=== PATIENT | male | born 1965 | race Caucasian/White ===

== ENCOUNTER 2019-01-05 18:44 | Emergency (ER) | payer BC ==
[2019-01-05 19:39] LABS: Urine Blood 2+ (NEG); Urine Glucose TRACE (NEG); Urine Protein 3+ (NEG); Urine Specific Gravity 1.025 (1.005-1.030); Urine pH 5.5 (5.0-7.0)
[2019-01-05] MEDS ORDERED: NA CHLORIDE 0.9% 1,000 ML ONE (20:04)
[2019-01-05] MEDS ORDERED: NA CHLORIDE 0.9% 500 ML ONE (20:04)
[2019-01-05 20:21] LABS: Absolute Lymphocytes (CBC) 1.5 K/uL (0.7-4.9); Basophils % 0.5 % (0-1.3); Hematocrit 29.3 % (39.6-49.0); Lymphocytes % 13.9 % (15.3-44.8); MPV 8.3 fL (7.6-11.3); RBC Red Blood Cell Count 3.23 M/uL (4.33-5.43)
[2019-01-05 20:22] LABS: Protime INR 1.08
--- NOTE | 2019-01-05 20:27 | RAD REPORT ---
EXAM DESCRIPTION: Anusha Single View01/05/2019 7:59 pm CLINICAL HISTORY: Abdominal pain COMPARISON: none FINDINGS: The lungs appear clear of acute infiltrate. The heart is normal size IMPRESSION: No acute abnormalities displayed
[2019-01-05 20:40] LABS: ALT/SGPT 17 U/L (12-78); AST/SGOT 12 U/L (15-37); Alkaline Phosphatase 114 U/L (45-117); BUN Blood Urea Nitrogen 56 mg/dL (7-18); Bicarbonate 23 mmol/L (21-32); Bilirubin Direct < 0.1 mg/dL (0-0.2); Bilirubin Total 0.3 mg/dL (0.2-1.0); Glucose Level 85 mg/dL (74-106); Lipase 46 U/L (73-393); Magnesium 2.1 mg/dL (1.8-2.4); NT PRO-BNP 5012 pg/mL (<125); Potassium 4.8 mmol/L (3.5-5.1); Protein, Total 7.5 g/dL (6.4-8.2); Sodium Level 141 mmol/L (136-145); Troponin (Emerg Dept Use Only) < 0.02 ng/mL (0.0-0.045)
[2019-01-05] MEDS ORDERED: ONDANSETRON 4 MG/2 ML VIAL ONE (20:43)
[2019-01-05] MEDS ORDERED: HYDROMORPHONE HCL 1 MG/ML INJ ONE (20:43)
--- NOTE | 2019-01-05 23:36 | ER ---
Nurse's Notes [facility] Name: Fred Hampton Age: 53 yrs Sex: Male : 1965 Arrival Date: 01/05/2019 Time: 18:45 Bed 13 Private MD: Diagnosis: Abdominal tenderness-6.5 lobulated mass, intramural, ileocolic bowel, cecum;Retention of urine;Crohn's disease of large intestine;Type 1 diabetes mellitus Presentation: 01/05 18:48 Presenting complaint: Pain with urination, rectal pain and mucous discharge from rectum hb x 2 weeks. Pt has had a colostomy for 5 years, does not usually have any rectal discharge or pain. Transition of care: patient was not received from another setting of care. Onset of symptoms was January 05, 2019. Risk Assessment: Do you want to hurt yourself or someone else? Patient reports no desire to harm self or others. Care prior to arrival: None. 18:48 Method Of Arrival: Ambulatory hb 18:48 Acuity: ART 3 hb 19:30 Initial Sepsis Screen: Does the patient meet any 2 criteria? No. Patient's initial sepsis screen is negative. Does the patient have a suspected source of infection? Yes: Acute abdominal pain. Historical: - Allergies: 18:51 Remicade; hb 18:51 Morphine; hb - PMHx: 18:51 Hypertension; Diabetes - IDDM; Crohn's; Myocardial infarction; Renal Disease; hb - PSHx: 18:51 Heart stents; Ankle - Right; Colostomy; hb - Immunization history:: Adult Immunizations up to date. - Social history:: Smoking status: Patient/guardian denies using tobacco. - Ebola Screening: : No symptoms or risks identified at this time. - Family history:: not pertinent. Screenin:30 Abuse screen: Denies threats or abuse. Denies injuries from another. Nutritional screening: No deficits noted. Tuberculosis screening: No symptoms or risk factors identified. Fall Risk None identified. Assessment: 19:30 General: Appears in no apparent distress. uncomfortable, Behavior is calm, cooperative, wh appropriate for age. Pain: Complains of pain in suprapubic area Pain does not radiate. Pain currently is 6 out of 10 on a pain scale. Neuro: Level of Consciousness is awake, alert, obeys commands, Oriented to person, place, time, situation, Appropriate for age. Cardiovascular: Heart tones S1 S2. Respiratory: Airway is patent Respiratory effort is even, unlabored, Respiratory pattern is regular, symmetrical. GI: Abdomen is flat, non-distended, Colostomy site is clean and dry. Ostomy appliance is intact. Bowel sounds present X 4 quads. Abd is soft and non tender X 4 quads. : Reports urinary frequency. EENT: No signs and/or symptoms were reported regarding the EENT system. Derm: Skin is intact, is healthy with good turgor, Skin is pink, warm \T\ dry. normal. Musculoskeletal: Circulation, motion, and sensation intact. 20:30 Reassessment: Patient appears in no apparent distress at this time. No changes from previously documented assessment. Patient and/or family updated on plan of care and expected duration. Pain level reassessed. Patient is alert, oriented x 3, equal unlabored respirations, skin warm/dry/pink. Pt in pain notified Provider. 21:30 Reassessment: Patient appears in no apparent distress at this time. Patient and/or tr5 family updated on plan of care and expected duration. Pain level reassessed. Patient is alert, oriented x 3, equal unlabored respirations, skin warm/dry/pink. 22:30 Reassessment: Patient appears in no apparent distress at this time. Patient and/or tr5 family updated on plan of care and expected duration. Pain level reassessed. Patient is alert, oriented x 3, equal unlabored respirations, skin warm/dry/pink. 01/06 00:32 Reassessment: Patient appears in no apparent distress at this time. Patient and/or tr5 family updated on plan of care and expected duration. Pain level reassessed. Patient is alert, oriented x 3, equal unlabored respirations, skin warm/dry/pink. Vital Signs: 01/05 18:51 BP 210 / 102; Pulse 89; Resp 16; Temp 97.1; Pulse Ox 100% on R/A; Weight 81.65 kg; hb Height 5 ft. 9 in. (175.26 cm); Pain 7/10; 20:30 BP 190 / 96; Pulse 95; Resp 18; Pulse Ox 98% on R/A; wh 18:51 Body Mass Index 26.58 (81.65 kg, 175.26 cm) hb ED Course: 18:45 Patient arrived in ED. as 18:49 Triage completed. hb 18:51 Arm band placed on. hb 18:55 Greg Hart is Primary Nurse. wh 19:23 Vikash Escobar MD is Attending Physician. carlos enrique 19:30 Patient has correct armband on for positive identification. Placed in gown. Bed in low wh position. Call light in reach. Side rails up X 1. shelter monitor on. Pulse ox on. NIBP on. 19:43 Bladder scan completed. 199. cm6 19:59 XRAY Chest (1 view) In Process Unspecified. EDMS 21:45 Abdomen In Process Unspecified. EDMS 21:46 CT completed. Patient tolerated procedure well. Patient moved back from CT. mw3 21:58 Bladder scan completed. 279. mt 23:33 Jailene Sutherland MD is Referral Physician. carlos enrique 23:33 Goran Sanz MD is Referral Physician. carlos enrique 23:36 Mario Aguila MD is Referral Physician. [facility] 01/06 00:12 Hester cath inserted, using sterile technique, 16 Fr., by nd, balloon inflated, to jd3 gravity drainage. 00:59 No provider procedures requiring assistance completed. IV discontinued. tr5 Administered Medications: 01/05 20:17 Drug: NS 0.9% 500 ml Route: IV; Rate: bolus; Site: right antecubital; 20:17 Drug: NS 0.9% 1000 ml Route: IV; Rate: 125 ml/hr; Site: right antecubital; 20:50 Drug: Dilaudid 1 mg {Note: RASS:0.} Route: IVP; Site: right antecubital; tr5 20:50 Drug: Zofran 4 mg Route: IVP; Site: right antecubital; tr5 20:50 Drug: NS 0.9% 500 ml Route: IV; Rate: bolus; Site: right antecubital; tr5 23:57 Drug: Flomax 0.4 mg Route: PO; tr5 23:58 Drug: Flagyl 500 mg Route: PO; tr5 23:59 Drug: Cipro 500 mg Route: PO; tr5 01/06 01:20 Drug: Zofran 4 mg Route: IVP; Site: right antecubital; tr5 01:26 Drug: Dilaudid 1 mg {Note: RASS:0.} Route: IVP; Site: right antecubital; tr5 Outcome: 01/05 23:36 Discharge ordered by MD. monaco 01/06 00:59 Discharged to home ambulatory. tr5 Condition: stable Discharge instructions given to patient, Instructed on discharge instructions, follow up and referral plans. medication usage, Demonstrated understanding of instructions, follow-up care, medications, Prescriptions given X 4. 01:26 Patient left the ED. tr5 Signatures: Dispatcher [employer] EDNE Vikash Escobar MD MD cha Martinez, Amelia as Baxter, Heather, RN RN blane Jalloh, Greg Cam mt, Jonathon, RN RN jd3 Kayla Richardson3 Mary Enrique cm6 Jens García, DEANA RN tr5
--- NOTE | 2019-01-05 23:37 | EDPHYS ---
Physician Documentation [facility] Name: Fred Hampton Age: 53 yrs Sex: Male : 1965 Arrival Date: 01/05/2019 Time: 18:45 Bed 13 Private MD: ED Physician Vikash Escobar HPI: 01/05 19:34 This 53 yrs old Male presents to ER via Ambulatory with complaints of carlos enrique Abdominal Pain, Rectal Pain, Urinary Problem. 19:34 The patient presents to the emergency department with pain in the rectal area. Onset: carlos enrique The symptoms/episode began/occurred 3 day(s) ago. Context: the patient has no known special context relating to the rectal area complaint(s). Modifying factors: The symptoms are alleviated by nothing, The symptoms are aggravated by nothing. Associate signs and symptoms: Pertinent positives: abdominal pain in the right lower quadrant and left lower quadrant, dysuria. The patient has not experienced similar symptoms in the past. Historical: - Allergies: 18:51 Remicade; hb 18:51 Morphine; hb - PMHx: 18:51 Hypertension; Diabetes - IDDM; Crohn's; Myocardial infarction; Renal Disease; hb - PSHx: 18:51 Heart stents; Ankle - Right; Colostomy; hb - Immunization history:: Adult Immunizations up to date. - Social history:: Smoking status: Patient/guardian denies using tobacco. - Ebola Screening: : No symptoms or risks identified at this time. - Family history:: not pertinent. ROS: 19:34 Constitutional: Negative for fever, chills, and weight loss, Eyes: Negative for injury, carlos enrique pain, redness, and discharge, ENT: Negative for injury, pain, and discharge, Neck: Negative for injury, pain, and swelling, Cardiovascular: Negative for chest pain, palpitations, and edema, Respiratory: Negative for shortness of breath, cough, wheezing, and pleuritic chest pain, Back: Negative for injury and pain, : Negative for injury, bleeding, discharge, and swelling, MS/Extremity: Negative for injury and deformity, Skin: Negative for injury, rash, and discoloration, Neuro: Negative for headache, weakness, numbness, tingling, and seizure, Psych: Negative for depression, anxiety, suicide ideation, homicidal ideation, and hallucinations, Allergy/Immunology: Negative for hives, rash, and allergies, Endocrine: Negative for neck swelling, polydipsia, polyuria, polyphagia, and marked weight changes. 19:34 Abdomen/GI: Positive for abdominal pain, abdominal cramps, of the right lower quadrant and left lower quadrant. Exam: 19:34 Constitutional: This is a well developed, well nourished patient who is awake, alert, carlos enrique and in no acute distress. Head/Face: Normocephalic, atraumatic. Eyes: Pupils equal round and reactive to light, extra-ocular motions intact. Lids and lashes normal. Conjunctiva and sclera are non-icteric and not injected. Cornea within normal limits. Periorbital areas with no swelling, redness, or edema. ENT: Nares patent. No nasal discharge, no septal abnormalities noted. Tympanic membranes are normal and external auditory canals are clear. Oropharynx with no redness, swelling, or masses, exudates, or evidence of obstruction, uvula midline. Mucous membranes moist. Neck: Trachea midline, no thyromegaly or masses palpated, and no cervical lymphadenopathy. Supple, full range of motion without nuchal rigidity, or vertebral point tenderness. No Meningismus. Chest/axilla: Normal chest wall appearance and motion. Nontender with no deformity. No lesions are appreciated. Cardiovascular: Regular rate and rhythm with a normal S1 and S2. No gallops, murmurs, or rubs. Normal PMI, no JVD. No pulse deficits. Respiratory: Lungs have equal breath sounds bilaterally, clear to auscultation and percussion. No rales, rhonchi or wheezes noted. No increased work of breathing, no retractions or nasal flaring. Back: No spinal tenderness. No costovertebral tenderness. Full range of motion. Male : Normal genitalia with no discharge or lesions. Skin: Warm, dry with normal turgor. Normal color with no rashes, no lesions, and no evidence of cellulitis. MS/ Extremity: Pulses equal, no cyanosis. Neurovascular intact. Full, normal range of motion. Neuro: Awake and alert, GCS 15, oriented to person, place, time, and situation. Cranial nerves II-XII grossly intact. Motor strength 5/5 in all extremities. Sensory grossly intact. Cerebellar exam normal. Normal gait. Psych: Awake, alert, with orientation to person, place and time. Behavior, mood, and affect are within normal limits. 19:34 Abdomen/GI: Inspection: abdomen appears normal, Bowel sounds: normal, Palpation: mild abdominal tenderness, in the right lower quadrant and left lower quadrant, Liver: no appreciated palpable abnormalities, Hernia: not appreciated, llq colostomy. 22:10 Abdomen/GI: Rectal exam: Prostate: enlarged. carlos enrique 22:10 Abdomen/GI: Rectal exam: is unremarkable, rectal tone normal, Stool: normal, guaiac negative, hemorrhoid(s), are not appreciated, mass, is not appreciated, swelling, is not appreciated, tenderness, is not appreciated. Vital Signs: 18:51 BP 210 / 102; Pulse 89; Resp 16; Temp 97.1; Pulse Ox 100% on R/A; Weight 81.65 kg; hb Height 5 ft. 9 in. (175.26 cm); Pain 7/10; 20:30 BP 190 / 96; Pulse 95; Resp 18; Pulse Ox 98% on R/A; wh 18:51 Body Mass Index 26.58 (81.65 kg, 175.26 cm) hb MDM: 19:23 Patient medically screened. [facility] 19:36 Data reviewed: vital signs, nurses notes, lab test result(s), EKG, radiologic studies, [facility] CT scan, plain films. 01/05 19:13 Order name: Urine Dipstick--Ancillary (enter results); Complete Time: 20:35 cm6 01/05 19:25 Order name: Basic Metabolic Panel; Complete Time: 20:43 [facility] 01/05 19:25 Order name: CBC with Diff; Complete Time: 20:35 [facility] 01/05 19:25 Order name: LFT's; Complete Time: 20:43 [facility] 01/05 19:25 Order name: Magnesium; Complete Time: 20:43 [facility] 01/05 19:25 Order name: NT PRO-BNP; Complete Time: 20:43 [facility] 01/05 19:25 Order name: PT-INR; Complete Time: 20:35 [facility] 01/05 19:25 Order name: Troponin (emerg Dept Use Only); Complete Time: 20:43 [facility] 01/05 19:25 Order name: XRAY Chest (1 view); Complete Time: 20:35 [facility] 01/05 19:25 Order name: Lipase; Complete Time: 20:43 [facility] 01/05 19:25 Order name: Urine Culture [facility] 01/05 20:48 Order name: Abdomen EDMS 01/05 19:13 Order name: Urine Dipstick-Ancillary (obtain specimen); Complete Time: 19:13 cm6 01/05 19:25 Order name: EKG; Complete Time: 19:27 [facility] 01/05 19:25 Order name: Cardiac monitoring; Complete Time: 20:16 [facility] 01/05 19:25 Order name: EKG - Nurse/Tech; Complete Time: 19:56 [facility] 01/05 19:25 Order name: IV Saline Lock; Complete Time: 20:16 [facility] 01/05 19:25 Order name: Labs collected and sent; Complete Time: 20:16 [facility] 01/05 19:25 Order name: O2 Per Protocol; Complete Time: 19:56 [facility] 01/05 19:25 Order name: O2 Sat Monitoring; Complete Time: 19:56 [facility] 01/05 19:33 Order name: Bladder Scanner: pvr; Complete Time: 19:55 [facility] 01/05 23:32 Order name: Hester; Complete Time: 00:32 [facility] 01/05 23:32 Order name: Hester Leg Bag; Complete Time: 00:31 [facility] Administered Medications: 20:17 Drug: NS 0.9% 500 ml Route: IV; Rate: bolus; Site: right antecubital; 20:17 Drug: NS 0.9% 1000 ml Route: IV; Rate: 125 ml/hr; Site: right antecubital; 20:50 Drug: Dilaudid 1 mg {Note: RASS:0.} Route: IVP; Site: right antecubital; tr5 20:50 Drug: Zofran 4 mg Route: IVP; Site: right antecubital; tr5 20:50 Drug: NS 0.9% 500 ml Route: IV; Rate: bolus; Site: right antecubital; tr5 23:57 Drug: Flomax 0.4 mg Route: PO; tr5 23:58 Drug: Flagyl 500 mg Route: PO; tr5 23:59 Drug: Cipro 500 mg Route: PO; tr5 01/06 01:20 Drug: Zofran 4 mg Route: IVP; Site: right antecubital; tr5 01:26 Drug: Dilaudid 1 mg {Note: RASS:0.} Route: IVP; Site: right antecubital; tr5 Disposition: 01/05/19 23:36 Discharged to Home. Impression: Abdominal tenderness - 6.5 lobulated mass, intramural, ileocolic bowel, cecum, Retention of urine, Crohn's disease of large intestine, Type 1 diabetes mellitus. - Condition is Stable. - Discharge Instructions: Abdominal Pain, Adult, Crohn Disease, Type 1 Diabetes Mellitus, Diagnosis, Adult, Hester Catheter Care, Adult, Acute Urinary Retention, Male, Abdominal Pain, Adult, [id number], Acute Urinary Retention, Male, [id number], Hester Catheter Care, Adult, [id number], Type 1 Diabetes Mellitus, Diagnosis, Adult, [id number]. - Prescriptions for Bentyl 20 mg Oral Tablet - take 1 tablet by ORAL route every 6 hours As needed; 20 tablet. Flagyl 500 mg Oral Tablet - take 1 tablet by ORAL route every 8 hours for 7 days; 21 tablet. Zofran 4 mg Oral Tablet - take 1 tablet by ORAL route every 12 hours As needed; 20 tablet. Flomax 0.4 mg Oral Capsule, Sust. Release 24 hr - take 1 capsule by ORAL route once daily 1/2 hour following the same meal each day; 30 capsule. Cipro 500 mg Oral Tablet - take 1 tablet by ORAL route every 12 hours for 7 days; 14 tablet. - Medication Reconciliation Form, Thank You Letter, Antibiotic Education, Prescription Opioid Use form. - Follow up: Private Physician; When: 2 - 3 days; Reason: Recheck today's complaints, Continuance of care, Re-evaluation by your physician. Follow up: Jailene Sutherland MD; When: 2 - 3 days; Reason: Recheck today's complaints, Re-evaluation by your physician. Follow up: Goran Sanz MD; When: 2 - 3 days; Reason: Recheck today's complaints, Re-evaluation by your physician. Follow up: Mario Aguila MD; When: 2 - 3 days; Reason: Recheck today's complaints, Continuance of care, Re-evaluation by your physician. - Problem is new. - Symptoms have improved. Signatures: Dispatcher [employer] Vikash Smith MD MD cha Baxter, Heather, RN RN Greg Hart Candace 6 Jens García RN RN tr5 Corrections: (The following items were deleted from the chart) 01/05 20:48 19:27 Abdomen Pelvis W Con+CT.RAD.BRZ ordered. EDMS EDMS 22:11 20:44 Abdomen/GI: Rectal exam: is unremarkable, Prostate: normal, rectal tone normal, carlos enrique Stool: normal, guaiac negative, hemorrhoid(s), are not appreciated, mass, is not appreciated, swelling, is not appreciated, tenderness, is not appreciated, carlos enrique 23:37 23:36 01/05/2019 23:36 Discharged to Home. Impression: Abdominal tenderness - 6.5 carlos enrique lobulated mass, intramural, ileocolic bowel, cecum; Retention of urine. Condition is Stable. Forms are Medication Reconciliation Form, Thank You Letter, Antibiotic Education, Prescription Opioid Use. Follow up: Private Physician; When: 2 - 3 days; Reason: Recheck today's complaints, Continuance of care, Re-evaluation by your physician. Follow up: Jailene Sutherland; When: 2 - 3 days; Reason: Recheck today's complaints, Re-evaluation by your physician. Follow up: Goran Sanz; When: 2 - 3 days; Reason: Recheck today's complaints, Re-evaluation by your physician. Follow up: Mario Aguila; When: 2 - 3 days; Reason: Recheck today's complaints, Continuance of care, Re-evaluation by your physician. Problem is new. Symptoms have improved. [facility] 01/06 01:26 01/05 23:37 01/05/2019 23:36 Discharged to Home. Impression: Abdominal tenderness - 6.5 tr5 lobulated mass, intramural, ileocolic bowel, cecum; Retention of urine; Crohn's disease of large intestine; Type 1 diabetes mellitus. Condition is Stable. Forms are Medication Reconciliation Form, Thank You Letter, Antibiotic Education, Prescription Opioid Use. Follow up: Private Physician; When: 2 - 3 days; Reason: Recheck today's complaints, Continuance of care, Re-evaluation by your physician. Follow up: Jailene Sutherland; When: 2 - 3 days; Reason: Recheck today's complaints, Re-evaluation by your physician. Follow up: Goran Sanz; When: 2 - 3 days; Reason: Recheck today's complaints, Re-evaluation by your physician. Follow up: Philmore Mingo; When: 2 - 3 days; Reason: Recheck today's complaints, Continuance of care, Re-evaluation by your physician. Problem is new. Symptoms have improved. carlos enrique
[2019-01-05] MEDS ORDERED: TAMSULOSIN 0.4 MG SR CAP ONE (23:54)
[2019-01-05] MEDS ORDERED: CIPROFLOXACIN HCL 500 MG TAB ONE (23:54)
[2019-01-05] MEDS ORDERED: metroNIDAZOLE 500 MG TABLET ONE (23:54)
[2019-01-06] MEDS ORDERED: HYDROMORPHONE HCL 1 MG/ML INJ ONE (01:11)
[2019-01-06] MEDS ORDERED: ONDANSETRON 4 MG/2 ML VIAL ONE (01:11)
[2019-01-06 02:21] VITALS: BP 190/96; TEMP 97.1; O2SAT 98
--- NOTE | 2019-01-06 06:12 | EKG ---
Test Date: 2019-01-05 Test Time: 19:33:09 [employer]: STEVE MEASUREMENT RESULTS: Intervals: Rate: 90 IL: 136 QRSD: 84 QT: 376 QTc: 459 [place]: P: 48 IL: 136 QRS: 37 T: 93 INTERPRETIVE STATEMENTS: Normal sinus rhythm Possible Left atrial enlargement Borderline ECG No previous ECG available for comparison Electronically Signed On 01-06-19 06:12:19 STRIP FEEDER by Fred Galloway
--- NOTE | 2019-01-08 13:33 | RAD REPORT ---
EXAM DESCRIPTION: CT Abdomen Pelvis Wo Contrast CLINICAL HISTORY: 53 years Male ABD PAIN TECHNIQUE: Contiguous axial images obtained through the abdomen and pelvis following oral contrast a dministration. Coronal and sagittal reformatted images provided. This CT exam was performed according to our departmental dose-optimization program, which includes on e or more of the following dose reduction techniques: automated exposure control, adjustment of the m A and/or kV according to patient size, and/or use of iterative reconstruction technique. COMPARISON: No prior exams provided for comparison. FINDINGS: Patient is status post left mid abdominal colostomy. Fat-containing parastomal hernia. There is a 6.5 cm lobulated intraluminal mass centered at the ileocolic valve/cecum without obstructi on. No bowel obstruction, pneumatosis, free intraperitoneal air, abscess, or ascites. Mild bibasilar atelectasis. Mild splenomegaly without focal lesion on this noncontrast study. The unenhanced liver, biliary tree, gallbladder, pancreas, adrenal glands, kidneys, and urinary bladd er are normal. Atherosclerosis without abdominal aortic aneurysm or retroperitoneal hemorrhage. Severe chronic degenerative disc disease at L5-S1 with grade 1 retrolisthesis and severe central andrea l stenosis. IMPRESSION: Prior left mid abdominal colostomy with a fat-containing parastomal hernia. 6.5 cm lobulated intramural mass centered at the ileocolic bowel cecum is concerning for neoplasm. No bowel obstruction or perforation. Degenerative disc disease results in severe central canal stenosis at L5-S1. Electronically signed by: Tory Hernandez MD 01/05/2019 10:31 PM [employer]CREEN [employer]ING [employer]TER Due to temporary technical issues with the PACS/Fluency reporting system, reports are being signed by the in house radiologist as a courtesy to ensure prompt reporting. The interpreting radiologist is f ully responsible for the content of the report.
== END 2019-01-06 01:26 | disposition home or self-care (01) ==
LOC: ER 18:44 → EDBD 18:44 → ER 01-06 01:26
DX: K63.89 Other specified diseases of intestine (principal); R33.9 Retention of urine, unspecified; K50.10 Crohn's disease of large intestine without complications; E10.9 Type 1 diabetes mellitus without complications; I10 Essential (primary) hypertension; I25.2 Old myocardial infarction; Z95.818 Presence of other cardiac implants and grafts
CPT/HCPCS: 93005; 87088; 85025; 80048; 36415; 83735; 85610; 80076; 81003; 84484; 83690; 83880; 74176; 71045; 51702; 96375; 96374; 99285; J1170 ×2; J7040; J7030; J2405 ×2; 87086